=== PATIENT | female | born 2000 | race African-American/Black ===

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

== ENCOUNTER 2019-06-04 16:29 | Emergency (ER) | payer SELFPAY ==
[~2019-06-04] VITALS: Ht 165.1 cm; Wt 104.5 kg
[2019-06-04 16:37] VITALS: Ht 165.1 cm; Wt 104.5 kg
[2019-06-04 17:04] LABS: BASOPHILS 0.7 % (0-2); EOSINOPHILS 0.9 % (0-7); HEMATOCRIT 41.6 % (36.0-48.0); HEMOGLOBIN 13.5 g/dL (12-16); LYMPHOCYTES 32.8 % (15-50); MCH 25.6 pg (26.0-34.0); MCHC 32.5 g/dL (31.0-37.0); MCV 78.8 fL (80.0-100.0); MEAN PLATELET VOLUME 9.1 fL (7.4-10.4); MONOCYTES 9.6 % (2-11); PLATELET COUNT 228 10x3/uL (130-400); RBC 5.28 10x6/uL (4.00-5.40); RDW 15.2 % (11.5-14.5); WBC 7.5 10x3/uL (4.8-10.8)
[2019-06-04 17:12] LABS: CALC OSMOLALITY 277 mosm/kg (275-300); CALCIUM 9.1 mg/dL (8.5-10.1); CARBON DIOXIDE 30.1 mmol/L (21.0-32.0); CHLORIDE - SERUM 104 mmol/L (98-107); CREATININE - SERUM 0.8 mg/dL (0.6-1.3); GLUCOSE 75 mg/dL (74-106); POTASSIUM - SERUM 4.2 mmol/L (3.5-5.1); SODIUM 141 mmol/L (136-145); UREA NITROGEN 8 mg/dL (7-18); eGFR NON AFRICAN AMERICAN > 90 mL/min (90-120)
[2019-06-04 17:16] LABS: HCG SERUM NEGATIVE (NEGATIVE)
[2019-06-04 17:18] LABS: ALBUMIN 3.8 g/dL (3.4-5.0); ALKALINE PHOSPHATASE 85 U/L (46-116); ALT (SGPT) 46 U/L (10-68); BILIRUBIN - TOTAL 0.29 mg/dL (0.2-1.3); PROTEIN - SERUM 7.8 g/dL (6.4-8.2)
[2019-06-04 18:08] LABS: APPEARANCE HAZY (CLEAR); BILIRUBIN NEGATIVE (NEGATIVE); COLOR DK YELLOW (YELLOW); GLUCOSE NEGATIVE (NEGATIVE); KETONE NEGATIVE (NEGATIVE); NITRITE NEGATIVE (NEGATIVE); PROTEIN TRACE mg/dL (NEGATIVE); SPECIFIC GRAVITY 1.015 (1.005-1.020); UROBILINOGEN NORMAL (NORMAL)
[2019-06-04 18:09] LABS: BACTERIA FEW /hpf (NEGATIVE); EPITHELIAL CELLS 0-5 /hpf (0-5); RED CELLS - URINE >50 /hpf (0-5); WHITE CELLS - URINE 0-5 /hpf (NEGATIVE)
[2019-06-04] MEDS ORDERED: MOBIC7.5 MG PO (18:49)
[2019-06-04 19:06] VITALS: BP 127/63
== END 2019-06-04 19:06 | disposition home or self-care (01) ==
LOC: D.ER 16:29
PROVIDERS: Family Medicine
DX: N92.0 Excessive and frequent menstruation with regular cycle (principal); N94.6 Dysmenorrhea, unspecified; J45.909 Unspecified asthma, uncomplicated

== ENCOUNTER 2019-09-25 10:08 | Emergency (ER) | payer MEDICAID ==
[~2019-09-25 10:08] MED LIST changes: +MOBIC7.5 MG PO
[2019-09-25 10:12] VITALS: Ht 165.1 cm
[2019-09-25] MEDS ORDERED: VENTOLIN HFA [SP8 GM INH (10:33)
[2019-09-25 10:37] LABS: BILIRUBIN NEGATIVE (NEGATIVE); GLUCOSE NEGATIVE (NEGATIVE); HCG URINE NEGATIVE (NEGATIVE); KETONE NEGATIVE (NEGATIVE); NITRITE NEGATIVE (NEGATIVE); SPECIFIC GRAVITY 1.015 (1.005-1.020); UROBILINOGEN NORMAL (NORMAL)
[2019-09-25 11:00] VITALS: BP 125/68
== END 2019-09-25 11:01 | disposition home or self-care (01) ==
LOC: D.ER 10:08
PROVIDERS: Emergency Medicine
DX: J45.909 Unspecified asthma, uncomplicated (principal); Z76.0 Encounter for issue of repeat prescription; R30.0 Dysuria

== ENCOUNTER 2019-11-08 13:35 | Emergency (ER) | payer OTHER ==
[~2019-11-08] VITALS: Ht 165.1 cm; Wt 106.8 kg
[~2019-11-08 13:35] MED LIST changes: +VENTOLIN HFA [SP8 GM INH
[2019-11-08 14:19] VITALS: Ht 165.1 cm; Wt 106.8 kg
[2019-11-08 14:41] LABS: BASOPHILS 0.3 % (0-2); HEMOGLOBIN 12.7 g/dL (12-16); IMMATURE GRANULOCYTES 0.2 % (0-5); LYMPHOCYTES 29.4 % (15-50); MCV 77.4 fL (80.0-100.0); MEAN PLATELET VOLUME 9.6 fL (7.4-10.4); MONOCYTES 6.7 % (2-11); NEUTROPHILS 62.4 % (40-80); WBC 10.2 10x3/uL (4.8-10.8)
[2019-11-08 14:45] LABS: PLATELET COUNT 304 10x3/uL (130-400)
[2019-11-08 14:51] LABS: BACTERIA FEW /hpf (NEGATIVE); BILIRUBIN NEGATIVE (NEGATIVE); EPITHELIAL CELLS 0-5 /hpf (0-5); GLUCOSE NEGATIVE (NEGATIVE); HCG URINE NEGATIVE (NEGATIVE); KETONE NEGATIVE (NEGATIVE); NITRITE NEGATIVE (NEGATIVE); RED CELLS - URINE 0-5 /hpf (0-5); WHITE CELLS - URINE RARE /hpf (NEGATIVE)
[2019-11-08 14:59] LABS: CALCIUM 8.9 mg/dL (8.5-10.1); CARBON DIOXIDE 26.6 mmol/L (21.0-32.0); CREATININE - SERUM 1.1 mg/dL (0.6-1.3); POTASSIUM - SERUM 3.6 mmol/L (3.5-5.1)
[2019-11-08 15:03] LABS: ALBUMIN 3.8 g/dL (3.4-5.0); BILIRUBIN - TOTAL 0.45 mg/dL (0.2-1.3); PROTEIN - SERUM 7.5 g/dL (6.4-8.2)
[2019-11-08 17:59] VITALS: BP 117/68
== END 2019-11-08 18:01 | disposition home or self-care (01) ==
LOC: D.ER 13:35
PROVIDERS: Family Medicine
DX: R10.9 Unspecified abdominal pain (principal); J45.909 Unspecified asthma, uncomplicated

== ENCOUNTER 2020-02-19 13:17 | Emergency (ER) | payer OTHER ==
[~2020-02-19] VITALS: Ht 165.1 cm; Wt 100.0 kg
[2020-02-19 13:20] VITALS: Ht 165.1 cm; Wt 100.0 kg
[2020-02-19 13:38] LABS: BILIRUBIN NEGATIVE (NEGATIVE); KETONE NEGATIVE (NEGATIVE); NITRITE NEGATIVE (NEGATIVE); UROBILINOGEN NORMAL (NORMAL)
[2020-02-19 13:40] LABS: BACTERIA FEW /hpf (NONE SEEN); HCG URINE NEGATIVE (NEGATIVE); RED CELLS - URINE 0-5 /hpf (0-5); WHITE CELLS - URINE 0-5 /hpf (0-5)
[2020-02-19 14:22] LABS: BASOPHILS 0.3 % (0-2); EOSINOPHILS 1.2 % (0-7); HEMATOCRIT 43.6 % (36.0-48.0); HEMOGLOBIN 13.9 g/dL (12-16); IMMATURE GRANULOCYTES 0.3 % (0-5); LYMPHOCYTES 23.2 % (15-50); MCH 24.1 pg (26.0-34.0); MCHC 31.9 g/dL (31.0-37.0); MCV 75.6 fL (80.0-100.0); MEAN PLATELET VOLUME 9.5 fL (7.4-10.4); MONOCYTES 6.1 % (2-11); NEUTROPHILS 68.9 % (40-80); PLATELET COUNT 231 10x3/uL (130-400); RBC 5.77 10x6/uL (4.00-5.40); RDW 18.7 % (11.5-14.5); WBC 10.6 10x3/uL (4.8-10.8)
[2020-02-19 14:24] LABS: CALC OSMOLALITY 279 mosm/kg (275-300); CALCIUM 8.9 mg/dL (8.5-10.1); CARBON DIOXIDE 26.2 mmol/L (21.0-32.0); CHLORIDE - SERUM 106 mmol/L (98-107); CREATININE - SERUM 0.7 mg/dL (0.6-1.3); GLUCOSE 78 mg/dL (74-106); POTASSIUM - SERUM 4.3 mmol/L (3.5-5.1); SODIUM 141 mmol/L (136-145); UREA NITROGEN 12 mg/dL (7-18); eGFR NON AFRICAN AMERICAN > 90 mL/min (90-120)
[2020-02-19 14:33] LABS: ALBUMIN 3.6 g/dL (3.4-5.0); ALKALINE PHOSPHATASE 107 U/L (30-120); ALT (SGPT) 55 U/L (10-68); AMYLASE - SERUM 51 U/L (25-115); BILIRUBIN - TOTAL 0.21 mg/dL (0.2-1.3); LIPASE 153 U/L (73-393); PROTEIN - SERUM 7.1 g/dL (6.4-8.2); TROPONIN-I < 0.017 ng/mL (0.000-0.060)
[2020-02-19] MEDS ORDERED: MACROBID100 MG PO (16:57)
[2020-02-19] MEDS ORDERED: IBUPROFEN800 MG PO (16:57)
[2020-02-19] MEDS ORDERED: CYCLOBENZAPRINE10 MG PO (16:57)
[2020-02-19] MEDS ORDERED: KEFLEX500 MG PO (16:57)
[2020-02-19] MEDS ORDERED: ACETAMINOPHEN500 M1 PO (16:57)
[2020-02-19 17:20] VITALS: BP 114/53
== END 2020-02-19 17:20 | disposition home or self-care (01) ==
LOC: D.ER 13:17
PROVIDERS: Family Medicine
DX: N39.0 Urinary tract infection, site not specified (principal); R30.0 Dysuria; M54.5 Low back pain; J45.909 Unspecified asthma, uncomplicated

== ENCOUNTER 2020-03-06 01:38 | Emergency (ER) | payer OTHER ==
[~2020-03-06] VITALS: Ht 165.1 cm; Wt 96.4 kg
[~2020-03-06 01:38] MED LIST changes: +ACETAMINOPHEN500 M1 PO; +CYCLOBENZAPRINE10 MG PO; +IBUPROFEN800 MG PO; +KEFLEX500 MG PO; +MACROBID100 MG PO
[2020-03-06 01:42] VITALS: Ht 165.1 cm; Wt 96.4 kg
[2020-03-06 02:13] LABS: BASOPHILS 0.3 % (0-2); EOSINOPHILS 1.3 % (0-7); HEMATOCRIT 41.9 % (36.0-48.0); HEMOGLOBIN 13.3 g/dL (12-16); IMMATURE GRANULOCYTES 0.2 % (0-5); LYMPHOCYTES 27.7 % (15-50); MCH 24.2 pg (26.0-34.0); MCHC 31.7 g/dL (31.0-37.0); MCV 76.3 fL (80.0-100.0); MEAN PLATELET VOLUME 9.5 fL (7.4-10.4); MONOCYTES 8.1 % (2-11); NEUTROPHILS 62.4 % (40-80); PLATELET COUNT 320 10x3/uL (130-400); RBC 5.49 10x6/uL (4.00-5.40); RDW 18.1 % (11.5-14.5); WBC 13.5 10x3/uL (4.8-10.8)
[2020-03-06 02:21] LABS: CALC OSMOLALITY 274 mosm/kg (275-300); CALCIUM 9.1 mg/dL (8.5-10.1); CARBON DIOXIDE 28.1 mmol/L (21.0-32.0); CHLORIDE - SERUM 104 mmol/L (98-107); GLUCOSE 93 mg/dL (74-106); POTASSIUM - SERUM 3.8 mmol/L (3.5-5.1); SODIUM 138 mmol/L (136-145); UREA NITROGEN 11 mg/dL (7-18); eGFR NON AFRICAN AMERICAN 75 mL/min (90-120)
[2020-03-06 02:28] LABS: ALBUMIN 3.6 g/dL (3.4-5.0); ALKALINE PHOSPHATASE 138 U/L (30-120); ALT (SGPT) 30 U/L (10-68); BILIRUBIN - TOTAL 0.11 mg/dL (0.2-1.3); LIPASE 359 U/L (73-393); PROTEIN - SERUM 7.9 g/dL (6.4-8.2)
[2020-03-06 02:48] LABS: BILIRUBIN NEGATIVE (NEGATIVE); KETONE NEGATIVE (NEGATIVE); NITRITE NEGATIVE (NEGATIVE); UROBILINOGEN NORMAL mg/dL (< 2)
[2020-03-06 02:49] LABS: HCG URINE NEGATIVE (NEGATIVE)
[2020-03-06] MEDS ORDERED: NAPROSYN500 MG PO (04:12)
[2020-03-06] MEDS ORDERED: ULTRAM50 MG PO (04:12)
[2020-03-06 04:22] VITALS: BP 140/80
== END 2020-03-06 04:21 | disposition home or self-care (01) ==
LOC: D.ER 01:38
PROVIDERS: Family Medicine
DX: R07.9 Chest pain, unspecified (principal); M94.0 Chondrocostal junction syndrome [Tietze]; J45.909 Unspecified asthma, uncomplicated

== ENCOUNTER 2020-10-17 20:36 | Emergency (ER) | payer OTHER ==
[~2020-10-17] VITALS: Ht 165.1 cm; Wt 96.4 kg
[~2020-10-17 20:36] MED LIST changes: +FLAGYL500 MG PO; +NAPROSYN500 MG PO; +ULTRAM50 MG PO; +VIBRAMYCIN 100100 MG PO
[2020-10-17 20:42] VITALS: BP 162/96; Ht 165.1 cm; Wt 96.4 kg
== END 2020-10-17 21:57 | disposition left against medical advice (07) ==
LOC: D.ER 20:36
DX: T63.481A Toxic effect of venom of other arthropod, accidental (unintentional), initial encounter (principal); Z53.29 Procedure and treatment not carried out because of patient's decision for other reasons